=== PATIENT | female | born 1990 | race Caucasian/White ===

== ENCOUNTER 2017-10-25 15:03 | Emergency (ER) | payer OTHER ==
[~2017-10-25] VITALS: Ht 162.6 cm; Wt 59.0 kg
[~2017-10-25 15:03] MED LIST: ACETAMINOPHEN-1 EAC1 PO; ADVIL200 MG PO; AMOXICILLIN875 MG PO; BACTRIM DS TAB1 EACH PO; BENADRYL25 MG PO; CIPROFLOXACIN500 M1 PO; ELAVIL; ELAVIL PO; ERYTHROMYCIN E3.5 G1 OP; FLAGYL500 MG PO; FLEXERIL PO; HYDROCODONE-AP1 EAC6 PO; IBUPROFEN 600600 M1 PO; IBUPROFEN 800800 M1; IBUPROFEN 800800 M1 PO; MAXALT; MEDROLDOSEPACK PO; MELATONIN; MIRALAX17 GM; MIRALAX255 GM; MIRALAX255 GM PO; NEXIUM; NORCO 5-325 TA1 EACH PO; ONDANSETRON HCL4 M2 PO; ORTHO TRI-CYCL1 EACH; ORTHO TRI-CYCL1 EACH PO; PHENERGAN 25 MG25 M1 PO; PHENERGAN 25 MG25 MG PO; POTASSIUM20 PO; PREDNISONE 20 M20 MG PO; PREDNISONE50 MG PO; PROAIR HFA8.5 GM INH; PROAIR RESPICL90 MCG IH; PROMETHAZINE HC25 M1; PROZAC40 MG; TESSALON PERLE100 MG PO; TESSALON200 MG PO; TRAMADOL 50 MG50 MG PO; TRIAMCINOLONE A80 G2 TOP; ULTRAM 50MG TAB50 MG PO; VICOPROFEN 2001 EACH PO; ZOFRAN ODT4 MG PO; ZOFRAN4 MG PO; ZPAK PO
[2017-10-25] MEDS ORDERED: PENICILLIN V P500 MG PO (15:28)
[2017-10-25 15:33] VITALS: BP 101/61
== END 2017-10-25 15:43 | disposition home or self-care (01) ==
LOC: M.ERS 15:03
DX: K08.89 Other specified disorders of teeth and supporting structures (principal); K58.9 Irritable bowel syndrome, unspecified; G43.909 Migraine, unspecified, not intractable, without status migrainosus; K21.9 Gastro-esophageal reflux disease without esophagitis; F41.9 Anxiety disorder, unspecified; Z88.8 Allergy status to other drugs, medicaments and biological substances

== ENCOUNTER 2018-04-23 05:59 | Emergency (ER) | payer OTHER ==
[~2018-04-23] VITALS: Ht 162.6 cm; Wt 59.0 kg
[~2018-04-23 05:59] MED LIST changes: +PENICILLIN V P500 MG PO
[2018-04-23 06:02] VITALS: BP 148/64
[2018-04-23] MEDS ORDERED: NOHOMEMEDICATIONS (06:06)
== END 2018-04-23 06:29 | disposition home or self-care (01) ==
LOC: M.ERS 05:59
DX: S51.812A Laceration without foreign body of left forearm, initial encounter (principal); G43.909 Migraine, unspecified, not intractable, without status migrainosus; K21.9 Gastro-esophageal reflux disease without esophagitis; F41.9 Anxiety disorder, unspecified; F17.210 Nicotine dependence, cigarettes, uncomplicated; Z88.8 Allergy status to other drugs, medicaments and biological substances; W27.8XXA Contact with other nonpowered hand tool, initial encounter; Y92.89 Other specified places as the place of occurrence of the external cause; Y99.8 Other external cause status; Y93.89 Activity, other specified